=== PATIENT | male | born 1970 | race Caucasian/White ===

== ENCOUNTER 2016-11-24 15:53 | Emergency (ER) | payer MEDICAID ==
[~2016-11-24] VITALS: Ht 182.9 cm; Wt 63.1 kg
--- NOTE | 2016-11-24 16:46 | NUR ---
no answer in er lobby
[2016-11-24 16:54] VITALS: BP 114/71
[2016-11-24] MEDS ORDERED: CYCLOBENZAPRINE 10 MG TAB PO ONE (18:05)
[2016-11-24] MEDS ORDERED: KETOROLAC 30 MG/ML VIAL IM ONE (18:05)
--- NOTE | 2016-11-24 18:33 | NUR ---
PATIENT IS A 46 YO MALE C/O LOW BACK PAIN AWAKE AND ALERT ABLE TO AMBULATE DENIES FALL OR TRAUMA. TO OVER FLOW 1 SEEN BY JESSICA
[2016-11-24 18:41] VITALS: BP 114/71
--- NOTE | 2016-11-24 18:44 | NUR ---
Patient discharged with v/s stable. Written and verbal after care instructions given and explained. Patient alert, oriented and verbalized understanding of instructions. Ambulatory with steady gait. All questions addressed prior to discharge. ID band removed. Patient advised to follow up with PMD. Rx of MOTRIN AND FLEXERIL given. Patient educated on indication of medication including possible reaction and side effects. Opportunity to ask questions provided and answered.
== END 2016-11-24 18:44 | disposition home or self-care (01) ==
LOC: MED 15:53
DX: G89.29 Other chronic pain (principal); M54.5 Low back pain
CPT/HCPCS: 96372; 99283; J1885

== ENCOUNTER 2016-12-20 10:03 | Emergency (ER) | payer MEDICAID ==
[~2016-12-20] VITALS: Ht 188 cm; Wt 64.4 kg
[2016-12-20 10:32] VITALS: BP 107/75
--- NOTE | 2016-12-20 10:36 | NUR ---
PATIENT TO LOBBY. NO AVAIL. BED AT THIS TIME.PATIENT IN NO DISTRESS
--- NOTE | 2016-12-20 11:04 | NUR ---
PATIENT AMBULATED TO BED 7 AT THIS TIME.
--- NOTE | 2016-12-20 11:05 | NUR ---
46/M BIB SELF C/O LEFT LOWER BACK PAIN RADIATING TO LLL X YESTERDAY. DENIES N/V/D; SKIN IS PINK/WARM/DRY; AAOX4 WITH EVEN AND STEADY GAIT; LUNGS CLEAR BL; HR EVEN AND REGULAR; PT DENIES ANY FEVER, CP, SOB, OR COUGH AT THIS TIME; PATIENT STATES PAIN OF 10/10 AT THIS TIME; VSS; PATIENT POSITIONED FOR COMFORT; HOB ELEVATED; BEDRAILS UP X2; BED DOWN. ER MD MADE AWARE OF PT STATUS.
[2016-12-20] MEDS ORDERED: CYCL10TA13 PO (11:06)
--- NOTE | 2016-12-20 11:43 | NUR ---
Patient being evaluated by physician at bedside.
[2016-12-20] MEDS ORDERED: KETOROLAC 60 MG/2 ML VIAL IM ONE (11:50)
--- NOTE | 2016-12-20 11:58 | NUR ---
ADMINISTERED MED ORDER.
--- NOTE | 2016-12-20 12:22 | NUR ---
PT STS PAIN 5/10 AT THIS TIME.Patient appears to be resting comfortably in bed. Vital Signs within normal limits. Respirations even and unlabored.WILL CONTINUE TO MONITOR.
[2016-12-20 12:28] VITALS: BP 110/60
== END 2016-12-20 12:28 | disposition home or self-care (01) ==
LOC: MED 10:03
DX: M54.42 Lumbago with sciatica, left side (principal)
CPT/HCPCS: 96372; 99283; J1885